=== PATIENT | male | born 1945 | race Caucasian/White ===

== ENCOUNTER → 2020-07-22 09:36 | Outpatient (CLI) | payer MEDICARE, SELFPAY ==
--- NOTE | 2020-07-22 09:52 | RAD_ITS ---
PROCEDURE: Sniff test. DATE OF EXAMINATION: 07/22/2020. INDICATION: Male, 75 years old. Chronic dyspnea. FLUOROSCOPY TIME (if supplied): (19 seconds) minutes/seconds The patient was examined under direct fluoroscopy during inspiration and expiration maneuvers. 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 RAD/Chest Sniff Test Fluoro Only IMPRESSION: Paralysis of the right hemidiaphragm. Electronically Signed: Aditya Rangel, at 10:06 EDT , Service support ,
== END ==
PROVIDERS: PCP Family Medicine; Referring Provider Internal Medicine Pulmonary Disease; Visit Provider Internal Medicine Pulmonary Disease
DX: R06.00 Dyspnea, unspecified (principal)
CPT/HCPCS: 76000

== ENCOUNTER → 2021-03-27 12:34 | Outpatient (CLI) | payer MEDICARE, SELFPAY ==
--- NOTE | 2021-03-27 13:43 | SP.MBSS_ITS ---
Modified Barium Swallow - Patient Information Study Date: 03/27/21 Study Time: 13:00 Direct Billable Minutes: 120 Total Minutes procedure & reportin Diagnosis: dysphagia, unspecified Referring Physician: Tiago Montenegro V Reason for Referral: To objectively assess swallow function under fluoroscopy and determine presence of aspiration. Medical History: The patient is a 75/M with paralysis of the right hemidiaphragm per chest fluoroscopy completed in June 2020 and patients report of recent diagnosis of asthma. No other significant medical history reported or on file. Dentition: Natural Teeth, Upper Dentures Mental Status: WNL Respiratory Status: Oxygenating on Room Air - Study Findings Consistencies: Thin Liquid, [place] Thick Liquid, Honey Thick Liquid, Pudding, Cookie - Penetration-Aspiration Scale Penetration-Aspiration Scale: OBJECTIVE ASSESSMENT OF SWALLOW FUNCTION (QUANTITATIVE ? PER TRIAL): PENETRATION / ASPIRATION SCALE (ABRAHAM): 1 = does not enter airway 2 = enters airway/above vocal folds/ejected 3 = enters airway/above vocal folds/not ejected 4 = enters airway/contacts vocal folds/ejected 5 = enters airway/contacts vocal folds/not ejected 6 = enters airway/below vocal folds/ejected 7 = enters airway/below vocal folds/not ejected despite effort 8 = enters airway/below vocal folds/no effort - Penetration-Aspiration Scale Score Thin Liquid via teaspoon Result: 1= does not enter airway Thin Liquid via teaspoon Trial 2 Result: 1= does not enter airway Thin Liquid via small single sip from cup Result: 1= does not enter airway Thin Liquid via large single sip from cup Result: 1= does not enter airway Thin Liquid via sequential sips from cup Result: 2= enter airway/above vocal folds/ejected [place] Thick Liquid via large single sip from cup Result: 1= does not enter airway Honey Thick Liquid via large single sip from cup Result: 1= does not enter airway Pudding via teaspoon Result: 1= does not enter airway Cookie Result: 1= does not enter airway Thin Liquid via sequential sips from straw Result: 2= enter airway/above vocal folds/ejected - Oral Phase Labial Seal: No Labial Escape Tongue Control During Bolus Hold: Cohesive bolus between tongue to palatal seal Bolus Preparation/Mastication: Timely and efficient chewing and mashing Bolus Transport/Lingual Motion: Brisk tongue motion Oral Residue: Trace residue lining oral structures - Pharyngeal Phase Initiation of Pharyngeal Swallow: Bolus head at posterior angle of ramus at first hyoid excursion Soft Palate Elevation: No bolus between soft palate and pharyngeal wall Laryngeal Elevation: Comp. Superior move thyroid cart w/comp. apprx arytenoid cart-epig pet Anterior Hyoid Excursion: Partial anterior movement Epiglottic Movement: Complete inversion Laryngeal Vestibule Closure at Height of Swallow: Incomplete; narrow column of air/contrast in laryngeal vestibule Pharyngeal Stripping Wave: Present - complete Pharyngoesophageal Segment Opening: Complete distension and complete duration; no obstruction of flow Tongue Base Retraction: No contrast between tongue base and posterior pharyngeal wall Pharyngeal Residue: Trace residue within or on pharyngeal structures - Diagnosis/Impression Diagnosis: Swallow Function WNL Impression: Oral phase characterized by timely and efficient mastication of a solid Jessica Doone shortbread cookie. Trace oral residue remaining. Adequate anterior to posterior transfer of bolus. Pharyngeal phase characterized by timely swallow onset and adequate epiglottic inversion. Decreased anterior hyoid excursion present although patient maintained appropriate laryngeal elevation. No aspiration was found at this date and time. The patient has reported increased coughing and describes a globus sensation with and without meals/drinks. Would consider work-up from pet caretaker to determine presence of acid reflux or esophageal dysfunction contributing to patients symptoms described. - Recommendations Diet: Regular Textures, Thin Liquids Compensatory Strategies: Small Bites, Small Sips, Sitting upright, Remain sitting upright for 30 minutes after PO intake Recommend Repeat Modified Barium Swallow: No Need for Skilled Speech Therapy Services: No Recommended Referrals: GI Consult Education Completed: 1. Described result of evaluation., 2. Pt understands evaluation & agrees with goals and treatment plan. - Status Active ST Patient: Active - Contact Information [facility] Speech Therapy:: Laura Martinez MA, CCC-PUBLIC MESSAGE SERVICE SUPERVISOR [place] [phone] [email or web address]
== END ==
PROVIDERS: PCP Family Medicine; Referring Provider Internal Medicine Pulmonary Disease; Visit Provider Internal Medicine Pulmonary Disease
DX: J98.6 Disorders of diaphragm (principal); R06.00 Dyspnea, unspecified
CPT/HCPCS: 74230; 92611

== ENCOUNTER → 2021-06-11 11:57 | Outpatient (CLI) | payer MEDICARE, SELFPAY ==
--- NOTE | 2021-06-11 11:59 | RAD_ITS ---
STUDY: X-RAY CHEST REASON FOR EXAM: Male, 76 years old. DYSPNEA TECHNIQUE: PA and lateral views of the chest. COMPARISON: None. FINDINGS: Elevation of the right hemidiaphragm. Mild increased markings at the lung bases suggestive of either linear atelectasis and/or scarring. Normal size heart. Normal mediastinum and yariel. Normal visualized pulmonary arteries. Normal visualized aortic arch and descending thoracic aorta. There are degenerative changes of the visualized thoracic spine. Normal visualized ribs, clavicles, and shoulders. Moderate sized hiatal hernia. RAD/Chest PA and Lateral IMPRESSION: Increased linear markings at the lung bases suggestive of bibasilar scarring and/or mild atelectasis. Electronically Signed: Aditya Rangel MD at 15:24 EDT , Service support ,
== END ==
PROVIDERS: PCP Family Medicine; Referring Provider Internal Medicine Pulmonary Disease; Visit Provider Internal Medicine Pulmonary Disease
DX: R06.00 Dyspnea, unspecified (principal)
CPT/HCPCS: 71046

== ENCOUNTER → 2021-07-02 09:11 | Outpatient (CLI) | payer MEDICARE, SELFPAY ==
--- NOTE | 2021-07-02 09:15 | RAD_ITS ---
STUDY: SNIFF TEST. REASON FOR EXAM: Male, 76 years old. PARALYZED R DIAPHRAGM FLUOROSCOPY TIME (if supplied): ( 16 seconds ) minutes/seconds. One image was obtained. TECHNIQUE: A sniff test was obtained. COMPARISON: Comparison is made with prior examination 07/22/2020. FINDINGS: There is paralysis of the right hemidiaphragm. RAD/Fluoroscopy 1 Hr or Less IMPRESSION: Paralysis of the right hemidiaphragm. Electronically Signed: Aditya Rangel MD at 15:01 EDT , Service support ,
[2021-07-02] MEDS: Lidocaine 2% (5ml sdv) 5 ML VIAL.MPF INFILT (09:30)
== END ==
PROVIDERS: PCP Family Medicine; Referring Provider Internal Medicine Pulmonary Disease; Visit Provider Internal Medicine Pulmonary Disease
DX: R06.00 Dyspnea, unspecified (principal); J98.6 Disorders of diaphragm
CPT/HCPCS: 76000

== ENCOUNTER 2022-02-13 09:18 | Outpatient (CLI) | payer MEDICARE, SELFPAY ==
--- NOTE | 2022-02-13 09:21 | RAD_ITS ---
STUDY: X-RAY CHEST REASON FOR EXAM: Male, 76 years old. Cough and dyspnea. TECHNIQUE: PA and lateral views of the chest. COMPARISON: 06/11/2021. FINDINGS: Limited inspiratory effort. There is mildly increased interstitial markings in lungs with minimal bibasilar atelectasis. The findings appear unchanged. There is no demonstrated pleural abnormality. Normal size heart. Normal mediastinum and yariel. Normal visualized pulmonary arteries. Normal visualized aortic arch and descending thoracic aorta. Normal visualized thoracic spine. Normal visualized ribs, clavicles, and shoulders. There is no demonstrated abnormality of the visualized soft tissue structures of the upper abdomen. RAD/Chest PA and Lateral IMPRESSION: No acute cardiopulmonary disease or interval change. Probable minimal bibasilar atelectasis. Electronically Signed: Tyron Lynne DO at 20:20 EDT ,
== END 2022-02-13 23:59 | disposition home or self-care (01) ==
LOC: MTRAD 09:19
PROVIDERS: PCP Family Medicine; Referring Provider Internal Medicine Pulmonary Disease; Visit Provider Internal Medicine Pulmonary Disease
DX: R06.00 Dyspnea, unspecified (principal); J86.9 Pyothorax without fistula; R05.9 Cough, unspecified
CPT/HCPCS: 71046